=== PATIENT | female | born 1980 | race African-American/Black ===

== ENCOUNTER 2017-06-20 13:30 | Emergency (ER) | payer OTHER ==
[~2017-06-20] VITALS: Ht 162.6 cm; Wt 126.5 kg
[~2017-06-20 13:30] MED LIST: ERGO50000 PO; GUAI600 PO; LEVA500T PO; LISI-360 PO
[2017-06-20] MEDS ORDERED: IOHEXOL 350 MG/ML 10 ML VIAL (for RAD DIAG) IVCONTRAST ONE (13:31)
[2017-06-20 13:32] VITALS: BP 118/91; PULSE 110; RESP 20; TEMP 98; O2SAT 97
--- NOTE | 2017-06-20 14:09 | PD ---
HPI Chief Complaint: Respiratory Symptoms Time Seen by Provider: 13:53 Travel History International Travel<30 days: No Contact w/Intl Traveler<30days: No Traveled to known affect area: No History of Present Illness HPI The patient is a 37-year-old female who presents emergency department for cough and cold symptoms. The patient states she developed cough and cold symptoms on with a runny nose, nasal congestion, mild headache , and a productive cough. The patient now complains of increasing wheezing, mild shortness of breath, and a dry nonproductive cough. The patient saw her primary physician earlier today, Dr. Issa, who did an EKG and then gave the patient nebulizers, prior to sending her to the emergency department for further evaluation. The patient does complain of fevers at home as high as 100 with intermittent chills and sweats. The patient also states she had an influenza screen performed at her physician's office which was negative. The patient did receive her influenza vaccination this year. The patient denies any known history of reactive airway disease, pneumonia, chronic bronchitis. She denies any tobacco use. The patient denies any history of pulmonary embolism, DVT, prolonged travel, or recent surgery. The patient does complain of mild chest tightness with her cough and cold symptoms. PFSH Past Medical History Diminished Hearing: No Hypertension: Yes ?: Not : 0 Past Surgical History Other Surgery: Yes (BREAST REDUCTION) Social History Alcohol Use: Yes (SOCIAL) Tobacco Use: No Substance Use: No Allergies-Medications (Allergen,Severity, Reaction): Coded Allergies: No Known Allergies (Verified Adverse Reaction, Unknown, 06/20/17) Reported Meds & Prescriptions Reported Meds & Active Scripts Active Reported Flonase Nasal [place] (Fluticasone Nasal [place]) 50 Mcg/Act [place] 50 Mcg EACH NARE BID Lisinopril 10 Mg Tab 10 Mg PO DAILY Review of Systems Except as stated in HPI: all other systems reviewed are Neg General / Constitutional: Positive: Fever, Chills HENT: Positive: Congestion Cardiovascular: Positive: Chest Pain or Discomfort Respiratory: Positive: Cough, Shortness of Breath, Wheezing Gastrointestinal: No: Nausea, Vomiting Musculoskeletal: No: Edema Neurologic: No: Weakness, Dizziness Physical Exam Narrative GENERAL: Awake, alert, pleasant 37-year-old female who appears her stated age and is in no acute respiratory distress. SKIN: Focused skin assessment warm/dry. HEAD: Atraumatic. Normocephalic. EYES: Pupils equal and round. No scleral icterus. No injection or drainage. ENT: No nasal bleeding or discharge. Mucous membranes pink and moist. Oropharynx reveals erythema without exudate. NECK: Trachea midline. No JVD. CARDIOVASCULAR: Regular, tachycardic with a heart rate of 110. RESPIRATORY: No accessory muscle use. Scattered wheezes and rhonchi. GASTROINTESTINAL: Abdomen soft, non-tender, nondistended. MUSCULOSKELETAL: No obvious deformities. No clubbing. No cyanosis. No edema. NEUROLOGICAL: Awake and alert. No obvious cranial nerve deficits. Motor grossly within normal limits. Normal speech. PSYCHIATRIC: Appropriate mood and affect; insight and judgment normal. Data Data Last Documented VS Vital Signs Date Time Temp Pulse Resp B/P (MAP) Pulse Ox O2 Delivery O2 Flow Rate FiO2 06/20/17 14:56 Nasal Cannula 2.00 06/20/17 14:43 99 06/20/17 14:43 104 21 06/20/17 13:32 98.0 Orders Orders Complete Blood Count With Diff (06/20/17 14:02) Comprehensive Metabolic Panel (06/20/17 14:02) B-Type Natriuretic Peptide (06/20/17 14:02) Magnesium (Mg) (06/20/17 14:02) Ckmb (Isoenzyme) Profile (06/20/17 14:02) Troponin I (06/20/17 14:02) Iv Access Insert/Monitor (06/20/17 14:02) Electrocardiogram (06/20/17 14:02) Ecg Monitoring (06/20/17 14:02) Oximetry (06/20/17 14:02) Oxygen Administration (06/20/17 14:02) Chest, Single Ap (06/20/17 14:02) Sodium Chloride 0.9% Flush (Ns Flush) (06/20/17 14:15) Methylprednisolone So Succ Inj (Solumedr (06/20/17 14:15) Albuterol-Ipratropium Neb (Duoneb Neb) (06/20/17 14:15) Sodium Chlorid 0.9% 500 Ml Inj (Ns 500 M (06/20/17 14:15) Lidocaine Pf 4% Neb (Lidocaine Pf 4% Neb (06/20/17 14:15) Electrocardiogram (06/20/17 ) Ct Pulmonary Angiogram (06/20/17 ) Morphine Inj (Morphine Inj) (06/20/17 16:30) Ondansetron Inj (Zofran Inj) (06/20/17 16:30) Iohexol 350 Inj (Omnipaque 350 Inj) (06/20/17 13:31) Labs Laboratory Tests Test 06/20/17 14:50 White Blood Count 9.7 TH/MM3 Red Blood Count 4.38 MIL/MM3 Hemoglobin 12.4 GM/DL Hematocrit 37.3 % Mean Corpuscular Volume 85.1 FL Mean Corpuscular Hemoglobin 28.3 PG Mean Corpuscular Hemoglobin Concent 33.2 % Red Cell Distribution Width 15.2 % Platelet Count 484 TH/MM3 Mean Platelet Volume 7.1 FL Neutrophils (%) (Auto) 61.7 % Lymphocytes (%) (Auto) 22.2 % Monocytes (%) (Auto) 11.0 % Eosinophils (%) (Auto) 4.9 % Basophils (%) (Auto) 0.2 % Neutrophils # (Auto) 6.0 TH/MM3 Lymphocytes # (Auto) 2.2 TH/MM3 Monocytes # (Auto) 1.1 TH/MM3 Eosinophils # (Auto) 0.5 TH/MM3 Basophils # (Auto) 0.0 TH/MM3 CBC Comment DIFF FINAL Differential Comment Blood Urea Nitrogen 8 MG/DL Creatinine 0.86 MG/DL Random Glucose 92 MG/DL Total Protein 8.2 GM/DL Albumin 3.5 GM/DL Calcium Level 8.7 MG/DL Magnesium Level 1.9 MG/DL Alkaline Phosphatase 63 U/L Aspartate Amino Transf (AST/SGOT) 11 U/L Alanine Aminotransferase (ALT/SGPT) 14 U/L Total Bilirubin 0.2 MG/DL Sodium Level 138 MEQ/L Potassium Level 3.7 MEQ/L Chloride Level 106 MEQ/L Carbon Dioxide Level 25.3 MEQ/L Anion Gap 7 MEQ/L Estimat Glomerular Filtration Rate 89 ML/MIN Total Creatine Kinase 91 U/L Troponin I LESS THAN 0.02 NG/ML B-Type Natriuretic Peptide 9 PG/ML MDM Medical Decision Making Medical Screen Exam Complete: Yes Emergency Medical Condition: Yes Medical Record Reviewed: Yes Interpretation(s) Chest x-ray reveals no acute cardiopulmonary disease. EKG reveals sinus tachycardia with a heart rate of 109. Nonspecific T wave changes. Last Impressions Chest X-Ray 06/20/17 1402 Signed Impressions: Service Date/Time: Tuesday, June 20, 2017 14:10 - CONCLUSION: 1. No acute cardiopulmonary disease. Sonny Schroeder MD CT Angiography 06/20/17 0000 Signed Impressions: Service Date/Time: Tuesday, June 20, 2017 17:16 - CONCLUSION: No evidence of acute pulmonary embolism or acute cardiopulmonary process. Aidan Wallace MD Laboratory Tests Test 06/20/17 14:50 White Blood Count 9.7 TH/MM3 Red Blood Count 4.38 MIL/MM3 Hemoglobin 12.4 GM/DL Hematocrit 37.3 % Mean Corpuscular Volume 85.1 FL Mean Corpuscular Hemoglobin 28.3 PG Mean Corpuscular Hemoglobin Concent 33.2 % Red Cell Distribution Width 15.2 % Platelet Count 484 TH/MM3 Mean Platelet Volume 7.1 FL Neutrophils (%) (Auto) 61.7 % Lymphocytes (%) (Auto) 22.2 % Monocytes (%) (Auto) 11.0 % Eosinophils (%) (Auto) 4.9 % Basophils (%) (Auto) 0.2 % Neutrophils # (Auto) 6.0 TH/MM3 Lymphocytes # (Auto) 2.2 TH/MM3 Monocytes # (Auto) 1.1 TH/MM3 Eosinophils # (Auto) 0.5 TH/MM3 Basophils # (Auto) 0.0 TH/MM3 CBC Comment DIFF FINAL Differential Comment Blood Urea Nitrogen 8 MG/DL Creatinine 0.86 MG/DL Random Glucose 92 MG/DL Total Protein 8.2 GM/DL Albumin 3.5 GM/DL Calcium Level 8.7 MG/DL Magnesium Level 1.9 MG/DL Alkaline Phosphatase 63 U/L Aspartate Amino Transf (AST/SGOT) 11 U/L Alanine Aminotransferase (ALT/SGPT) 14 U/L Total Bilirubin 0.2 MG/DL Sodium Level 138 MEQ/L Potassium Level 3.7 MEQ/L Chloride Level 106 MEQ/L Carbon Dioxide Level 25.3 MEQ/L Anion Gap 7 MEQ/L Estimat Glomerular Filtration Rate 89 ML/MIN Total Creatine Kinase 91 U/L Troponin I LESS THAN 0.02 NG/ML B-Type Natriuretic Peptide 9 PG/ML Differential Diagnosis Differential diagnosis includes bronchitis, pneumonia, influenza, viral syndrome , sepsis, pulmonary embolism, cardiomyopathy, congestive heart failure, pleural effusion. Narrative Course IV was established, labs are drawn and sent, and the patient was placed on cardiac telemetry monitoring and continuous pulse oximetry monitoring. Chest x- ray was obtained. The patient received Solu-Medrol 125 mg intravenously and duo neb with respiratory lidocaine. Chest x-ray was unremarkable. Troponin was unremarkable. EKG revealed sinus tachycardia but otherwise was unremarkable except for nonspecific T wave changes. The patient was reassessed , she continued to have mild chest pain and shortness of breath. Therefore, CT pulmonary angiogram was ordered rule out PE. CT pulmonary injury gram is unremarkable. The patient's heart rate was 100 at rest. The patient be discharged home for bronchitis with reactive airway disease, she was administered morphine 4 mg intravenously which did make her sleepy. She is advised to follow-up with her primary physician tomorrow and return if symptoms worsen or progress. She will be provided a copy of her chest x-ray results, CT results, and lab results at discharge. Diagnosis Primary Impression: Bronchitis Additional Impression: Reactive airway disease Qualified Codes: J45.901 - Unspecified asthma with (acute) exacerbation Patient Instructions: General Instructions Additional Instructions: Please provide a patient a copy of her CT results, lab results, and chest x-ray results at discharge. Medications as directed. Follow-up with your primary physician tomorrow. Return if symptoms worsen or progress. Med/Other Pt SpecificInfo: Prescription(s) given Scripts Azithromycin (Zithromax Z-German) 250 Mg Dspk 250 MG PO DIRECTED for Infection, #1 DSPK 0 Refills 500 MG (2 tabs) day 1, then 1 tab days 2-5. Prov: Nirmal Polanco MD 06/20/17 Albuterol 18 GM Inh (Ventolin Hfa 18 GM Inh) 90 Mcg/Act Aer 2 PUFF INH Q4H Y for SHORTNESS OF BREATH, #1 INHALER 0 Refills Prov: Nirmal Polanco MD 06/20/17 Prednisone (Deltasone) 20 Mg Tab 40 MG PO DAILY for 5 Days, #10 TAB 0 Refills Prov: Nirmal Polanco MD 06/20/17 Disposition: 01 DISCHARGE HOME Condition: Stable Nirmal Polanco MD Jun 20, 2017 14:09
[2017-06-20] MEDS: RESP: ALBUTEROL 2.5 MG/IPRATROPIUM 0.5 MG NEB (SCH) INH ×2 (14:13→14:20)
[2017-06-20] MEDS ORDERED: RESP: LIDOCAINE HCL 4% PF 5 ML NEB NEB ONE (14:15)
[2017-06-20] MEDS ORDERED: SODIUM CHLORIDE 0.9% FLUSH 10 ML FLUSH IVF PRN (14:15)
[2017-06-20] MEDS ORDERED: SODIUM CHLORID 0.9% 500 ML INJ 500 ML IV ONE (14:15)
[2017-06-20] MEDS ORDERED: methylPREDNISolone SOD SUCC 125 MG/2 ML VIAL IV PUSH ONE (14:15)
--- NOTE | 2017-06-20 14:33 | RADRPT ---
EXAM DATE/TIME: 06/20/2017 14:10 [facility] COMPARISON: CHEST SINGLE AP, April 30, 2015, 6:06. INDICATIONS : Cough and chest pain. MEDICAL HISTORY : None. SURGICAL HISTORY : None. ENCOUNTER: Initial ACUITY: 1 day PAIN SCORE: 6/10 LOCATION: Bilateral chest FINDINGS: No new focal pleural or parenchymal opacities. Cardiomediastinal contours are within normal limits. B karen thorax is intact. CONCLUSION: 1. No acute cardiopulmonary disease. Sonny Schroeder MD on June 20, 2017 at 14:30 Board Certified Radiologist. This report was verified electronically.
[2017-06-20] MEDS ORDERED: LISI10TA3 PO (14:42)
[2017-06-20] MEDS ORDERED: FLUT1SPR5 EACH NARE (14:42)
[2017-06-20 14:43] VITALS: BP 142/92; PULSE 104; RESP 21; O2SAT 100; O2SAT 99
[2017-06-20 15:35] LABS: BASOPHIL % 0.2 % (0.0-2.0); EOSINOPHIL # 0.5 TH/MM3 (0-0.4); EOSINOPHIL % 4.9 % (0.0-4.0); HEMATOCRIT 37.3 % (35.0-46.0); HEMOGLOBIN 12.4 GM/DL (11.6-15.3); LYMPH % 22.2 % (9.0-44.0); LYMPHOCYTE # 2.2 TH/MM3 (1.0-4.8); MEAN CELL VOLUME 85.1 FL (80.0-100.0); MEAN CORPUSCULAR HEMOGLOBIN 28.3 PG (27.0-34.0); MEAN CORPUSCULAR HGB CONC 33.2 % (32.0-36.0); MEAN PLATELET VOLUME 7.1 FL (7.0-11.0); MONOCYTE # 1.1 TH/MM3 (0-0.9); NEUT % 61.7 % (16.0-70.0); PLATELET COUNT 484 TH/MM3 (150-450); RED BLOOD COUNT 4.38 MIL/MM3 (4.00-5.30); RED CELL DISTRIBUTION WIDTH 15.2 % (11.6-17.2); WHITE BLOOD COUNT 9.7 TH/MM3 (4.0-11.0)
[2017-06-20 15:36] LABS: ALBUMIN 3.5 GM/DL (3.4-5.0); ALT (GPT) 14 U/L (10-53); AST (GOT) 11 U/L (15-37); BICARBONATE 25.3 MEQ/L (21.0-32.0); BLOOD UREA NITROGEN 8 MG/DL (7-18); CALCIUM 8.7 MG/DL (8.5-10.1); CHLORIDE 106 MEQ/L (98-107); CREATININE 0.86 MG/DL (0.50-1.00); GLOMERULAR FILTRATION RATE 89 ML/MIN (>89); GLUCOSE,RANDOM 92 MG/DL (74-106); MAGNESIUM 1.9 MG/DL (1.5-2.5); SODIUM (NA) 138 MEQ/L (136-145)
[2017-06-20 15:40] LABS: ALKALINE PHOSPHATASE 63 U/L (45-117); TOTAL BILIRUBIN ADULT 0.2 MG/DL (0.2-1.0); TOTAL PROTEIN 8.2 GM/DL (6.4-8.2); TROPONIN I LESS THAN 0.02 NG/ML (0.02-0.05)
[2017-06-20] MEDS ORDERED: MORPHINE SULFATE 4 MG/ML INJ IV PUSH ONE (16:30)
[2017-06-20] MEDS ORDERED: ONDANSETRON HCL 4 MG/2 ML VIAL IV PUSH ONE (16:30)
--- NOTE | 2017-06-20 17:33 | RADRPT ---
EXAM DATE/TIME: 06/20/2017 17:16 [facility] COMPARISON: No previous studies available for comparison. INDICATIONS : Shortness of breath. IV CONTRAST: 74 cc Omnipaque 350 (iohexol) IV RADIATION DOSE: 22.97 CTDIvol (mGy) ; Patient body habitus MEDICAL HISTORY : Hypertension. SURGICAL HISTORY : None. ENCOUNTER: Initial ACUITY: 4 - 6 days PAIN SCALE: 0/10 LOCATION: chest TECHNIQUE: Volumetric scanning of the chest was performed using a pulmonary embolism protocol MIP images were re constructed. Using automated exposure control and adjustment of the mA and/or kV according to patien t size, radiation dose was kept as low as reasonably achievable to obtain optimal diagnostic quality images. DICOM format image data is available electronically for review and comparison. Follow-up recommendations for detected pulmonary nodules are based at a minimum on nodule size and pa tient risk factors according to Fleischner Society Guidelines. FINDINGS: PULMONARY ARTERIES: No filling defects are seen in the pulmonary arteries through the segmental level. LUNGS: There is no consolidation or pneumothorax . No concerning pulmonary nodule is visualized. PLEURAE: There is no pleural thickening or pleural effusion. MEDIASTINUM: There is good visualization of the great vessels of the middle mediastinum. No evidence of mediastin al or hilar adenopathy/mass. MUSCULOSKELETAL: Within normal limits for patient age. MISCELLANEOUS: The visualized upper abdominal organs demonstrate no acute abnormality. CONCLUSION: No evidence of acute pulmonary embolism or acute cardiopulmonary process. Aidan Wallace MD on June 20, 2017 at 17:30 Board Certified Radiologist. This report was verified electronically.
[2017-06-20] MEDS ORDERED: ZITHTAB PO (18:26)
[2017-06-20] MEDS ORDERED: PRED-503 PO (18:26)
[2017-06-20] MEDS ORDERED: VENTAER INH (18:26)
[2017-06-20 18:37] VITALS: BP 147/81; PULSE 96; RESP 18; O2SAT 96
--- NOTE | 2017-06-21 15:53 | EKG ---
Date Performed: 06/20/2017 Time Performed: 14:44:51 PTAGE: 37 years EKG: SINUS TACHYCARDIA NONSPECIFIC T-WAVE ABNORMALITY ABNORMAL RHYTHM ECG NO PREVIOUS TRACING DOCTOR: Harley Naqvi Interpretating Date/Time 06/21/2017 15:52:16
== END 2017-06-20 19:50 | disposition home or self-care (01) ==
LOC: NEPE 13:30
DX: J45.909 Unspecified asthma, uncomplicated (principal); R00.0 Tachycardia, unspecified; I10 Essential (primary) hypertension; R94.31 Abnormal electrocardiogram [ECG] [EKG]; Z79.899 Other long term (current) drug therapy
CPT/HCPCS: 71010; 71275; 80053; 82550; 83735; 83880; 84484; 85025; 93005; 94640; 94664; 96361; 96374; 96375; 99285; J2270; J2405; J2930; J7040; Q9967

== ENCOUNTER 2017-11-22 19:47 | Emergency (ER) | payer OTHER ==
[~2017-11-22 19:47] MED LIST changes: -ERGO50000 PO; +FLUT1SPR5 EACH NARE; -GUAI600 PO; -LEVA500T PO; -LISI-360 PO; +LISI10TA3 PO; +PRED-503 PO; +VENTAER INH; +ZITHTAB PO
[2017-11-22 20:15] VITALS: BP 143/98; PULSE 107; RESP 18; TEMP 99.6; O2SAT 98
[2017-11-22] MEDS ORDERED: SODIUM CHLOR 0.9% 1000 ML INJ 1,000 ML IV SCH (20:34)
--- NOTE | 2017-11-22 20:38 | PD ---
HPI Chief Complaint: Facial Pain or Swelling Time Seen by Provider: 20:20 Travel History International Travel<30 days: No Contact w/Intl Traveler<30days: No Traveled to known affect area: No History of Present Illness HPI This is a 37-year-old female who presents for evaluation of facial swelling. She reports that she was diagnosed with streptococcal pharyngitis, had a positive strep test, 2 days ago at the after-hours [facility] clinic. She reports that they gave her a steroid injection and discharged her with a prescription for penicillin and viscous lidocaine. She reports that yesterday she felt improved but today she has developed facial swelling. She reports swelling of her lower lip, the sensation that her tongue is heavy, swelling of the cheeks and periorbital region as well as drainage from the eyes. She reports persistent sore throat and sensation of swelling in the throat. She reports chills and myalgias at home. Denies any rash or shortness of breath. She reports that she has had amoxicillin in the past with no allergic reaction. Of note this patient is prescribed lisinopril and has been on it for approximately 1 year. No other complaints. PFSH Past Medical History Diminished Hearing: No Hypertension: Yes : 0 Past Surgical History Other Surgery: Yes (BREAST REDUCTION) Social History Alcohol Use: Yes (SOCIAL) Tobacco Use: No Substance Use: No Allergies-Medications (Allergen,Severity, Reaction): Coded Allergies: No Known Allergies (Verified Adverse Reaction, Unknown, 11/22/17) Reported Meds & Prescriptions Reported Meds & Active Scripts Active Ciprofloxacin Opth Drops (Ciprofloxacin HCl) 0.3% Soln 2 Drop EACH EYE Q4H while awake x 5 days. Prednisone (21) 10 mg tab Dose Pack (Prednisone) 10 Mg Pack 10 Mg PO DIRECTED Clindamycin (Clindamycin HCl) 300 Mg Cap 300 Mg PO TID 10 Days Zithromax Z-German (Azithromycin) 250 Mg Dspk 250 Mg PO DIRECTED 500 MG (2 tabs) day 1, then 1 tab days 2-5. Ventolin Hfa 18 GM Inh (Albuterol Sulfate) 90 Mcg/Act Aer 2 Puff INH Q4H PRN Deltasone (Prednisone) 20 Mg Tab 40 Mg PO DAILY 5 Days Reported Flonase Nasal [place] (Fluticasone Nasal [place]) 50 Mcg/Act [place] 50 Mcg EACH NARE BID Lisinopril 10 Mg Tab 10 Mg PO DAILY Review of Systems Except as stated in HPI: all other systems reviewed are Neg Physical Exam Narrative GENERAL: Well-developed well-nourished female no acute distress. Tachycardic. SKIN: Warm and dry. No rash. HEAD: Atraumatic. Normocephalic. EYES: Pupils equal and round. No scleral icterus. No injection or drainage. ENT: No nasal bleeding or discharge. Mucous membranes pink and moist. The lower lip appears edematous. The cheeks and periorbital regions bilaterally are mildly puffy and edematous in comparison to a picture on her family member' s phone. There is no sublingual edema. There is some oral pharyngeal erythema. There is no stridor or drooling. NECK: Trachea midline. No JVD. There is no lymphadenopathy but there is tenderness to palpation in the submandibular region. CARDIOVASCULAR: Regular rate and rhythm. No murmur appreciated. RESPIRATORY: No accessory muscle use. Clear to auscultation. Breath sounds equal bilaterally. GASTROINTESTINAL: Abdomen soft, non-tender, nondistended. Hepatic and splenic margins not palpable. MUSCULOSKELETAL: No obvious deformities. No clubbing. No cyanosis. No edema. NEUROLOGICAL: Awake and alert. No obvious cranial nerve deficits. Motor grossly within normal limits. Normal speech. PSYCHIATRIC: Appropriate mood and affect; insight and judgment normal. Data Data Last Documented VS Orders Orders Ct Soft Tiss Neck W Iv Cont (11/22/17 ) Complete Blood Count With Diff (11/22/17 20:34) Comprehensive Metabolic Panel (11/22/17 20:34) Lactic Acid (11/22/17 20:34) Urinalysis - C+S If Indicated (11/22/17 20:34) Iv Access Insert/Monitor (11/22/17 20:34) Ed Urine Pregnancytest Poc (11/22/17 20:34) Diphenhydramine Inj (Benadryl Inj) (11/22/17 20:45) Methylprednisolone So Succ Inj (Solumedr (11/22/17 20:45) Famotidine Inj (Pepcid Inj) (11/22/17 20:45) Sodium Chlor 0.9% 1000 Ml Inj (Ns 1000 M (11/22/17 20:34) Ketorolac Inj (Toradol Inj) (11/22/17 20:45) Iohexol 350 Inj (Omnipaque 350 Inj) (11/22/17 22:10) Clindamycin 600 Mg/Ns Premix (Cleocin 60 (11/22/17 22:30) Urine Culture (11/22/17 21:45) Ed Discharge Order (11/23/17 00:30) Labs Laboratory Tests Test 11/22/17 21:00 11/22/17 21:05 11/22/17 21:45 White Blood Count 14.7 TH/MM3 Red Blood Count 4.46 MIL/MM3 Hemoglobin 12.2 GM/DL Hematocrit 37.6 % Mean Corpuscular Volume 84.3 FL Mean Corpuscular Hemoglobin 27.4 PG Mean Corpuscular Hemoglobin Concent 32.4 % Red Cell Distribution Width 14.4 % Platelet Count 527 TH/MM3 Mean Platelet Volume 7.1 FL Neutrophils (%) (Auto) 61.5 % Lymphocytes (%) (Auto) 23.4 % Monocytes (%) (Auto) 12.5 % Eosinophils (%) (Auto) 2.2 % Basophils (%) (Auto) 0.4 % Neutrophils # (Auto) 9.0 TH/MM3 Lymphocytes # (Auto) 3.4 TH/MM3 Monocytes # (Auto) 1.8 TH/MM3 Eosinophils # (Auto) 0.3 TH/MM3 Basophils # (Auto) 0.1 TH/MM3 CBC Comment DIFF FINAL Differential Comment Blood Urea Nitrogen 13 MG/DL Creatinine 0.88 MG/DL Random Glucose 94 MG/DL Total Protein 7.7 GM/DL Albumin 3.1 GM/DL Calcium Level 8.4 MG/DL Alkaline Phosphatase 71 U/L Aspartate Amino Transf (AST/SGOT) 10 U/L Alanine Aminotransferase (ALT/SGPT) 13 U/L Total Bilirubin 0.3 MG/DL Sodium Level 138 MEQ/L Potassium Level 3.7 MEQ/L Chloride Level 102 MEQ/L Carbon Dioxide Level 26.5 MEQ/L Anion Gap 10 MEQ/L Estimat Glomerular Filtration Rate 87 ML/MIN Lactic Acid Level 0.8 mmol/L Urine Color LIGHT-YELLOW Urine Turbidity HAZY Urine pH 6.0 Urine Specific [place] 1.022 Urine Protein TRACE mg/dL Urine Glucose (UA) NEG mg/dL Urine Ketones NEG mg/dL Urine Occult Blood MOD Urine Nitrite NEG Urine Bilirubin NEG Urine Urobilinogen LESS THAN 2.0 MG/DL Urine Leukocyte Esterase SMALL Urine RBC 5 /hpf Urine WBC 2 /hpf Urine Squamous Epithelial Cells 7 /hpf Urine Bacteria MOD /hpf Urine Hyaline Casts 2 /lpf Urine Mucus FEW /lpf Microscopic Urinalysis Comment CULTURE INDICATED MDM Medical Decision Making Medical Screen Exam Complete: Yes Emergency Medical Condition: Yes Medical Record Reviewed: Yes Differential Diagnosis Allergic reaction, COLEMAN inhibitor induced angioedema, streptococcal glomerulonephritis Narrative Course 37-year-old female diagnosed with strep throat 2 days ago presents now with facial swelling, persistent sore throat, chills and myalgias. Lab work, urinalysis, CT soft tissue neck and been ordered. The patient will be given IV H1 and H2 antihistamines, Solu-Medrol, Toradol, IV fluids. CT soft tissue neck reveals CONCLUSION: 1. Enlargement of the adenoids and tonsils causing narrowing of the oropharynx. 2. Adenopathy. 3. The tonsil findings and adenopathy are likely related to acute inflammatory change. This should be correlated clinically. 4. Mild right sinus disease. CBC reveals WBC count of 14.7. CMP notable for an albumin of 3.1 otherwise unremarkable. Upon reexamination the patient is feeling improved. The plan will be to discontinue the lisinopril as well as the penicillin. Antibiotic therapy will be changed to clindamycin. She will be given a dose of IV clindamycin here. At the end of my shift the patient be signed out to Dr. Suggs for further observation, likely discharge home on oral clindamycin and prednisone if continued improvement. She has an appointment tomorrow with her primary care physician. Diagnosis Primary Impression: Tonsillitis Additional Impression: Angioedema Additional Instructions: Quit taking the lisinopril. Quit taking the penicillin. Take the new medications as prescribed. Take Benadryl every [address] or drink alcohol when taking this medication. Take Tylenol Motrin for fever per dosing instructions on the bottle. Follow-up with primary care physician as scheduled. Return for any acutely new or worsening symptoms. Med/Other Pt SpecificInfo: Prescription(s) given Scripts Ciprofloxacin Opth Drops (Ciprofloxacin Opth Drops) 0.3% Soln 2 DROP EACH EYE Q4H for Infection, #1 BOTTLE 0 Refills while awake x 5 days. Prov: Pop Suggs MD 11/23/17 Prednisone (21) 10 mg tab Dose Pack (Prednisone (21) 10 mg tab Dose Pack) 10 Mg Pack 10 MG PO DIRECTED for Inflammation, #1 DSPK 0 Refills Prov: Pop Suggs MD 11/22/17 Clindamycin (Clindamycin) 300 Mg Cap 300 MG PO TID for Infection for 10 Days, CAP 0 Refills Prov: Pop Suggs MD 11/22/17 Keo Polo November 22, 2017 20:38
[2017-11-22] MEDS ORDERED: KETOROLAC TROMETHAMINE 30 MG/ML (IVP) VIAL IV PUSH ONE (20:45)
[2017-11-22] MEDS ORDERED: diphenhydrAMINE HCL 50 MG/ML VIAL IVP ONE (20:45)
[2017-11-22] MEDS ORDERED: FAMOTIDINE 20 MG/2 ML VIAL IV PUSH ONE (20:45)
[2017-11-22] MEDS ORDERED: methylPREDNISolone SOD SUCC 125 MG/2 ML VIAL IV PUSH ONE (20:45)
[2017-11-22 21:25] LABS: BASOPHIL # 0.1 TH/MM3 (0-0.2); BASOPHIL % 0.4 % (0.0-2.0); EOSINOPHIL # 0.3 TH/MM3 (0-0.4); EOSINOPHIL % 2.2 % (0.0-4.0); HEMATOCRIT 37.6 % (35.0-46.0); HEMOGLOBIN 12.2 GM/DL (11.6-15.3); LYMPH % 23.4 % (9.0-44.0); LYMPHOCYTE # 3.4 TH/MM3 (1.0-4.8); MEAN CELL VOLUME 84.3 FL (80.0-100.0); MEAN CORPUSCULAR HEMOGLOBIN 27.4 PG (27.0-34.0); MEAN CORPUSCULAR HGB CONC 32.4 % (32.0-36.0); MEAN PLATELET VOLUME 7.1 FL (7.0-11.0); MONO % 12.5 % (0.0-8.0); MONOCYTE # 1.8 TH/MM3 (0-0.9); NEUT % 61.5 % (16.0-70.0); PLATELET COUNT 527 TH/MM3 (150-450); RED BLOOD COUNT 4.46 MIL/MM3 (4.00-5.30); RED CELL DISTRIBUTION WIDTH 14.4 % (11.6-17.2); WHITE BLOOD COUNT 14.7 TH/MM3 (4.0-11.0)
[2017-11-22 21:38] LABS: ALBUMIN 3.1 GM/DL (3.4-5.0); BICARBONATE 26.5 MEQ/L (21.0-32.0); BLOOD UREA NITROGEN 13 MG/DL (7-18); CALCIUM 8.4 MG/DL (8.5-10.1); CHLORIDE 102 MEQ/L (98-107); CREATININE 0.88 MG/DL (0.50-1.00); GLOMERULAR FILTRATION RATE 87 ML/MIN (>89); GLUCOSE,RANDOM 94 MG/DL (74-106); SODIUM (NA) 138 MEQ/L (136-145)
[2017-11-22 21:40] LABS: ALT (GPT) 13 U/L (10-53); AST (GOT) 10 U/L (15-37)
[2017-11-22 21:42] LABS: ALKALINE PHOSPHATASE 71 U/L (45-117); TOTAL BILIRUBIN ADULT 0.3 MG/DL (0.2-1.0); TOTAL PROTEIN 7.7 GM/DL (6.4-8.2)
[2017-11-22] MEDS ORDERED: IOHEXOL 350 MG/ML 10 ML VIAL (for RAD DIAG) IVCONTRAST ONE (22:10)
--- NOTE | 2017-11-22 22:21 | RADRPT ---
EXAM DATE/TIME: 11/22/2017 21:56 [facility] COMPARISON: No previous studies available for comparison. INDICATIONS : Bilateral facial and neck swelling. IV CONTRAST: 90 cc Omnipaque 350 (iohexol) IV RADIATION DOSE: 20.79 CTDIvol (mGy) MEDICAL HISTORY : Hypertension. SURGICAL HISTORY : None. ENCOUNTER: Initial ACUITY: 2 days PAIN SCALE: 6/10 LOCATION: Bilateral facial TECHNIQUE: Volumetric scanning of the neck was performed. Using automated exposure control and adjustment of th e mA and/or kV according to patient size, radiation dose was kept as low as reasonably achievable to obtain optimal diagnostic quality images. DICOM format image data is available electronically for r eview and comparison. FINDINGS: NASOPHARYNX: The adenoids appear enlarged. OROPHARYNX: There is diffuse enlargement of the tonsils narrowing the transverse dimension of the oropharynx. LARYNX: The supraglottic, glottic, and infraglottic structures are intact. PARAPHARYNGEAL: The parapharyngeal space is intact. SALIVARY GLANDS: The parotid and submandibular glands are intact. LYMPH NODES: There are enlarged lymph nodes seen bilaterally in the anterior and posterior triangles and the bilat eral digastric regions measuring up to 2 cm. THYROID: Homogeneous enhancement without evidence of nodule. BONES: Unremarkable. OTHER: There is right sphenoid and posterior right ethmoid sinus disease. CONCLUSION: 1. Enlargement of the adenoids and tonsils causing narrowing of the oropharynx. 2. Adenopathy. 3. The tonsil findings and adenopathy are likely related to acute inflammatory change. This should be correlated clinically. 4. Mild right sinus disease. Cj Thompson MD on November 22, 2017 at 22:14 Board Certified Radiologist. This report was verified electronically.
[2017-11-22] MEDS ORDERED: CLINDAMYCIN 600 MG/NS PREMIX 50 ML IV ONE (22:30)
[2017-11-22] MEDS ORDERED: CLIN300C5 PO (22:37)
[2017-11-22] MEDS ORDERED: PRED10PA PO (22:37)
[2017-11-22 23:15] LABS: BACTERIA, URINE MOD /hpf; BILIRUBIN, URINE NEG (NEG); BLOOD, URINE MOD (NEG); GLUCOSE,URINE NEG (NEG); HYALINE CAST, URINE 2 /lpf (RARE); KETONE, URINE NEG (NEG); MUCUS URINE FEW /lpf (OCC); NITRITE,URINE NEG (NEG); SQUAMOUS EPITHELIAL CELL URINE 7 /hpf (0-5); URINE COLOR LIGHT-YELLOW (YELLW/STRAW); URINE LEUKOCYTE ESTERASE SMALL (NEG)
--- NOTE | 2017-11-22 23:24 | PD ---
Physical Exam Date Seen by Provider: November 22, 2017 Time Seen by Provider: 23:23 Narrative Patient is signed out to me at the end of shift change patient has a recent swelling of the lower lip possibly due to penicillin possibly due to her long- term lisinopril patient was switched from penicillin to clindamycin and given steroids patient is to be observed I am to follow-up CAT scan of the neck and discharged with prednisone and clindamycin advised the patient to stop the lisinopril stop the Pen-Vee K and follow-up as an outpatient Data Data Last Documented VS Orders Orders Ct Soft Tiss Neck W Iv Cont (11/22/17 ) Complete Blood Count With Diff (11/22/17 20:34) Comprehensive Metabolic Panel (11/22/17 20:34) Lactic Acid (11/22/17 20:34) Urinalysis - C+S If Indicated (11/22/17 20:34) Iv Access Insert/Monitor (11/22/17 20:34) Ed Urine Pregnancytest Poc (11/22/17 20:34) Diphenhydramine Inj (Benadryl Inj) (11/22/17 20:45) Methylprednisolone So Succ Inj (Solumedr (11/22/17 20:45) Famotidine Inj (Pepcid Inj) (11/22/17 20:45) Sodium Chlor 0.9% 1000 Ml Inj (Ns 1000 M (11/22/17 20:34) Ketorolac Inj (Toradol Inj) (11/22/17 20:45) Iohexol 350 Inj (Omnipaque 350 Inj) (11/22/17 22:10) Clindamycin 600 Mg/Ns Premix (Cleocin 60 (11/22/17 22:30) Urine Culture (11/22/17 21:45) Ed Discharge Order (11/23/17 00:30) Labs Laboratory Tests Test 11/22/17 21:00 11/22/17 21:05 11/22/17 21:45 White Blood Count 14.7 TH/MM3 Red Blood Count 4.46 MIL/MM3 Hemoglobin 12.2 GM/DL Hematocrit 37.6 % Mean Corpuscular Volume 84.3 FL Mean Corpuscular Hemoglobin 27.4 PG Mean Corpuscular Hemoglobin Concent 32.4 % Red Cell Distribution Width 14.4 % Platelet Count 527 TH/MM3 Mean Platelet Volume 7.1 FL Neutrophils (%) (Auto) 61.5 % Lymphocytes (%) (Auto) 23.4 % Monocytes (%) (Auto) 12.5 % Eosinophils (%) (Auto) 2.2 % Basophils (%) (Auto) 0.4 % Neutrophils # (Auto) 9.0 TH/MM3 Lymphocytes # (Auto) 3.4 TH/MM3 Monocytes # (Auto) 1.8 TH/MM3 Eosinophils # (Auto) 0.3 TH/MM3 Basophils # (Auto) 0.1 TH/MM3 CBC Comment DIFF FINAL Differential Comment Blood Urea Nitrogen 13 MG/DL Creatinine 0.88 MG/DL Random Glucose 94 MG/DL Total Protein 7.7 GM/DL Albumin 3.1 GM/DL Calcium Level 8.4 MG/DL Alkaline Phosphatase 71 U/L Aspartate Amino Transf (AST/SGOT) 10 U/L Alanine Aminotransferase (ALT/SGPT) 13 U/L Total Bilirubin 0.3 MG/DL Sodium Level 138 MEQ/L Potassium Level 3.7 MEQ/L Chloride Level 102 MEQ/L Carbon Dioxide Level 26.5 MEQ/L Anion Gap 10 MEQ/L Estimat Glomerular Filtration Rate 87 ML/MIN Lactic Acid Level 0.8 mmol/L Urine Color LIGHT-YELLOW Urine Turbidity HAZY Urine pH 6.0 Urine Specific [place] 1.022 Urine Protein TRACE mg/dL Urine Glucose (UA) NEG mg/dL Urine Ketones NEG mg/dL Urine Occult Blood MOD Urine Nitrite NEG Urine Bilirubin NEG Urine Urobilinogen LESS THAN 2.0 MG/DL Urine Leukocyte Esterase SMALL Urine RBC 5 /hpf Urine WBC 2 /hpf Urine Squamous Epithelial Cells 7 /hpf Urine Bacteria MOD /hpf Urine Hyaline Casts 2 /lpf Urine Mucus FEW /lpf Microscopic Urinalysis Comment CULTURE INDICATED MDM Medical Record Reviewed: Yes Supervised Visit with DEE: Yes Narrative Course Reexamination patient has no stridor and no difficulty breathing she says she feels 100% better she feels ready to go home she is advised to return if her airway feels at all like it is closing satting 100% on room air talking. And says she says she feels so much better than when she came she is an appointment tomorrow at 1130 with her own primary care doctor she is discharged with clindamycin to replace the penicillin told to hold lisinopril until she can talk with her doctor and she is given prednisone taper pack as well as Cipro eyedrops for a most likely viral conjunctivitis Diagnosis Primary Impression: Tonsillitis Additional Impressions: Angioedema Conjunctivitis Patient Instructions: General Instructions, Tonsillitis (ED) Additional Instruction: Quit taking the lisinopril. Quit taking the penicillin. Take the new medications as prescribed. Take Benadryl every [address] drink alcohol when taking this medication. Take Tylenol Motrin for fever per dosing instructions on the bottle. Follow-up with primary care physician as scheduled. Return for any acutely new or worsening symptoms. Scripts Ciprofloxacin Opth Drops (Ciprofloxacin Opth Drops) 0.3% Soln 2 DROP EACH EYE Q4H for Infection, #1 BOTTLE 0 Refills while awake x 5 days. Prov: Pop Suggs MD 11/23/17 Prednisone (21) 10 mg tab Dose Pack (Prednisone (21) 10 mg tab Dose Pack) 10 Mg Pack 10 MG PO DIRECTED for Inflammation, #1 DSPK 0 Refills Prov: Pop Suggs MD 11/22/17 Clindamycin (Clindamycin) 300 Mg Cap 300 MG PO TID for Infection for 10 Days, CAP 0 Refills Prov: Pop Suggs MD 11/22/17 Disposition: 01 DISCHARGE HOME Condition: Good Pop Suggs MD November 22, 2017 23:24
[2017-11-23] MEDS ORDERED: CIPR0.3S2 EACH EYE (01:50)
== END 2017-11-23 02:05 | disposition home or self-care (01) ==
LOC: NEPE 19:47
DX: J03.90 Acute tonsillitis, unspecified (principal); T78.3XXA Angioneurotic edema, initial encounter; H10.9 Unspecified conjunctivitis; N39.0 Urinary tract infection, site not specified; B96.89 Other specified bacterial agents as the cause of diseases classified elsewhere; Z16.19 Resistance to other specified beta lactam antibiotics
CPT/HCPCS: 70491; 80053; 81001; 83605; 84703; 85025; 87077; 87086; 87186; 96374; 96375; 99285; J1200; J1885; J2930; J7030; Q9967